=== PATIENT | female | born 1985 | race Hispanic/Latino ===

== ENCOUNTER 2020-11-15 21:40 | Emergency (ER) | payer BC, OTHER, SELFPAY ==
[2020-11-15] MEDS ORDERED: ACETAMINOPHEN 500 MG TAB ONE (22:53)
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
[2020-11-15 23:47] VITALS: TEMP 99.3
[2020-11-15 23:49] VITALS: BP 127/84; O2SAT 98
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
== END 2020-11-15 23:40 | disposition home or self-care (01) ==
LOC: ER 21:40
DX: S00.83XA Contusion of other part of head, initial encounter (principal); W50.0XXA Accidental hit or strike by another person, initial encounter; Z88.2 Allergy status to sulfonamides; E07.9 Disorder of thyroid, unspecified; E11.9 Type 2 diabetes mellitus without complications; I10 Essential (primary) hypertension
CPT/HCPCS: 70450; 72125

== ENCOUNTER 2022-04-11 09:19 | Emergency (ER) | payer BC ==
--- OUTSIDE RECORDS SUMMARY | 2022-04-11 09:22 | XMS REPORT | Continuity of Care Document ---
:1985 Author Organization [facility] t Address [address] [place] [address] [address] [place] [address] Care Team Providers Name Role Phone Pcp, Patient Does Not Have A Primary Care Physician [id number] Nettie Elmore PA-C Attending Clinician RODRIGUEZ KIM Attending Clinician Unavailable Rodriguez Ledbetter Attending Clinician Doctor Unassigned, [place] Attending Clinician Unavailable Payers Payer Name Policy Type Policy Number Effective Date Expiration Date S ourradu Problems Condition Condition Condition Status Onset Resolution Last Treating Co mments Source Name Details Category Date Date Treatment Clinician Date No known No known Disease Unive rs active active ity of problems problems [facility] Allergies, Adverse Reactions, Alerts Allergy Allergy Status Severity Reaction(s) Onset Inactive Treating Comm ents Source Name Type Date Date Clinician Sulfur Propensi Active Rash 2021-0 Univers ty to 4-24 ity of adverse 00:00: [place] reaction 00 [facility] SULFUR DRUG Active Rash 2021-0 Univers INGREDI 4-24 ity of 00:00: [place] 00 [facility] NO KNOWN Drug Active Univers ALLERGIE Class ity of S [facility] Social History Social Habit Start Date Stop Date Quantity Comments Source Exposure to 2021-09-12 2021-09-22 Not sure [facility] SARS-CoV-2 (event) 00:00:00 09:49:00 [facility]ica Branch Sex Assigned [birth year] [facility] 00:00:00 00:00:00 [facility] Smoking Status Start Date Stop Date Source Unknown if ever smoked [facility] Medications Ordered Filled Start Stop Current Ordering Indication Dosage Frequency Signature Comments Components Source Medication Medication Date Date Medication? Clinician (SIG) Name Name methylPREDN 2021-0 Yes [id number] Take by Univers ISolone 4 4-24 mouth ity of mg tablets 00:00: [place]INSTRU [place] 00 CTIONS. Medical follow Branch package directions bromphenira 0 Yes [id number] 5mL Take 5 mL Univers mine-pseudo 4-24 by mouth 3 it y of ephedrine-D 00:00: (three) Paul as M (BROMFED 00 times Medical DM) 2-30-10 daily as Bran ch mg/5 mL needed for syrup Cold symptoms. cetirizine 0 Yes [id number] 10mg Take 1 Univers 10 mg 4-24 tablet by ity of tablet 00:00: mouth [place] 00 daily. Medical Branch ibuprofen Yes [id number] 400mg Take 1 Univers 400 mg 4-24 tablet by ity of tablet 00:00: mouth [place] 00 every 6 Medical (six) Branch hours as needed (30). methylPREDN 2021-0 Yes [id number] Take by Univers ISolone 4 4-24 mouth ity of mg tablets 00:00: SEE-INSTRU [place] 00 CTIONS. Medical follow Branch package directions bromphenira 0 Yes [id number] 5mL Take 5 mL Univers mine-pseudo 4-24 by mouth 3 it y of ephedrine-D 00:00: (three) Paul as M (BROMFED 00 times Medical DM) 2-30-10 daily as Bran ch mg/5 mL needed for syrup Cold symptoms. cetirizine Yes [id number] 10mg Take 1 Univers 10 mg 4-24 tablet by ity of tablet 00:00: mouth [place] 00 daily. Medical Branch ibuprofen 0 Yes [id number] 400mg Take 1 Univers 400 mg 4-24 tablet by ity of tablet 00:00: mouth [place] 00 every 6 Medical (six) Branch hours as needed (30). Vital Signs Vital Name Observation Time Observation Value Comments Source Systolic blood 2021-09-22 14:49:00 148 mm[Hg] Univer sity of pressure [facility] Diastolic blood 2021-09-22 14:49:00 106 mm[Hg] Unive rsity [facility] Heart rate 2021-09-22 14:49:00 89 /min [facility] Body temperature 2021-09-22 14:49:00 37.22 Holly [facility] Respiratory rate 2021-09-22 14:49:00 16 /min [facility] Body height 2021-09-22 14:49:00 144.8 cm [facility] Body weight 2021-09-22 14:49:00 93.123 kg [facility] BMI 2021-09-22 14:49:00 44.43 kg/m2 [facility] Oxygen saturation in 2021-09-22 14:49:00 100 /min [facility] Arterial blood by [facility] Pulse oximetry [place] Procedures Procedure Date / Time Performed Performing Clinician Sourc e POCT MOLECULAR STREP 2021-09-22 14:54:00 Rodriguez Kim [facility] ASSIGNMENT OF BENEFITS 2021-09-22 14:44:09 Doctor Unassigned, No [facility] Encounters Start End Encounter Admission Attending Care Care Encounter Source Date/Time Date/Time Type Type Clinicians Facility Department ID 2021-10-14 2021-10-14 [facility] [id number] Univers 00:00:00 00:00:00 [facility] [id number] it [facility] [id number] Paul as CLAUDY?BLEA [id number] [address] MEDICAL OFFICE [facility] 2021-09-22 2021-09-22 Outpatient R JUDY [facility] [id number] Univers 09:40:00 10:42:48 RODRIGUEZ yuliana [place] [facility] 2021-09-22 2021-09-22 Urgent Nettie Elmore [facility] [id number] Univers 09:40:00 10:00:00 Care Rodriguez Kim [facility] [id number] ityuliana [facility] [id number] Paul as CLAUDY?BLEA [id number] [address] MEDICAL OFFICE [facility] 2021-09-22 2021-09-22 Orders Doctor PAULA [id number] Univers 00:00:00 00:00:00 Only Unassigned, JACOB [id number] ity of [place] [facility] [id number] Paul as [id number] [address] Results Test Description Test Time Test Comments Results Result Comments Source POCT MOLECULAR STREP 2021-09-22 15:04:28 Test Item Value Reference Range Interpretation Comme nts POCT Molecular Strep (test code = 63115-2) Negative Negative Lab Interpretation (test code = 00433-1) Normal [facility]
[2022-04-11 09:35] LABS: Urine Blood 3+ (Negative); Urine Glucose Negative (Negative); Urine Protein Trace (Negative); Urine Specific Gravity >=1.030 (1.005-1.030); Urine pH 5.5 (5.0-7.0)
--- NOTE | 2022-04-11 10:16 | RAD REPORT ---
EXAM DESCRIPTION: CT - Abdomen Pelvis Wo Contrast - 04/11/2022 10:04 am CLINICAL HISTORY: Abdominal pain. Flank pain, kidney stone suspected COMPARISON: CTSTONE PROTOCOL dated 02/20/2015 TECHNIQUE: CT imaging of the abdomen and pelvis was performed without contrast. Solid organ, bowel a nd vascular assessment is limited due to lack of IV and oral contrast. All CT scans are performed using dose optimization technique as appropriate and may include automated exposure control or mA/KV adjustment according to patient size. FINDINGS: The lower lung cuellar are clear.Cholecystectomy clips. The liver, spleen, pancreas, adrenal glands and right kidney are within normal limits for a limited n on-contrast examination.2 mm calculus left UVJ with mild left hydronephrosis. No bowel obstruction, free air, free fluid or abscess. The appendix is normal. The osseous structures are within normal limits. IMPRESSION: 2 mm stone is present left UVJ with mild left hydronephrosis. A limited non-contrast examination was performed as detailed.
[2022-04-11 10:22] LABS: Absolute Lymphocytes (CBC) 1.9 K/uL (0.7-4.9); Lymphocytes % 24.8 % (15.3-44.8); MCV 82.1 fL (80-100); MPV 8.5 fL (7.6-11.3); RBC Red Blood Cell Count 4.75 M/uL (3.86-4.86)
[2022-04-11] MEDS ORDERED: ONDANSETRON 4 MG/2 ML VIAL ONE (10:28)
[2022-04-11] MEDS ORDERED: MORPHINE 2 MG/ML SYR ONE (10:28)
[2022-04-11] MEDS ORDERED: NA CHLORIDE 0.9% 1,000 ML ONE (10:28)
[2022-04-11] MEDS ORDERED: KETOROLAC 30 MG/ML INJ ONE (10:28)
[2022-04-11 10:41] LABS: Albumin 3.5 g/dL (3.4-5.0); Bilirubin Total 0.5 mg/dL (0.2-1.0); Potassium 3.7 mmol/L (3.5-5.1); Protein, Total 8.4 g/dL (6.4-8.2)
--- NOTE | 2022-04-11 10:58 | ER ---
Nurse's Notes [facility] Name: Obdulia Deluca Age: 37 yrs Sex: Female : 1985 Arrival Date: 04/11/2022 Time: 09:21 Bed 17 Private MD: Albaro Amos Diagnosis: Kidney Stone/ Calculus in urethra Presentation: 04/11 09:23 Chief complaint: Patient states: mid back pain that began this morning with ss intermittent N/V x 3 days. Coronavirus screen: Client denies travel out of the [place] in the last 14 days. Ebola Screen: Patient denies exposure to infectious person. Patient denies travel to an Ebola-affected area in the 21 days before illness onset. Initial Sepsis Screen: Does the patient meet any 2 criteria? No. Patient's initial sepsis screen is negative. Does the patient have a suspected source of infection? No. Patient's initial sepsis screen is negative. Risk Assessment: Do you want to hurt yourself or someone else? Patient reports no desire to harm self or others. Onset of symptoms was April 11, 2022. 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 - Social history:: Smoking status: Patient denies any tobacco usage or history of. Screenin:30 Abuse screen: Denies threats or abuse. Denies injuries from another. Nutritional db screening: No deficits noted. Tuberculosis screening: No symptoms or risk factors identified. Fall Risk None identified. No fall in past 12 months (0 pts). No secondary diagnosis (0 pts). IV access (20 points). Ambulatory Aid- None/Bed Rest/Nurse Assist (0 pts). Gait- Normal/Bed Rest/Wheelchair (0 pts) Mental Status- Oriented to own ability (0 pts). Total Garcia Fall Scale indicates No Risk (0-24 pts). Assessment: 10:40 Reassessment: Patient appears in no apparent distress at this time. Patient is alert, db oriented x 3, equal unlabored respirations, skin warm/dry/pink. General: Appears in no apparent distress. comfortable, Behavior is calm, cooperative, appropriate for age, quiet. Pain: Complains of pain in left flank radiating to abdomen. Neuro: Level of Consciousness is awake, alert, obeys commands, Oriented to person, place, time, situation, Appropriate for age. Vital Signs: 09:23 BP 184 / 117; Pulse 90; Resp 17; Temp 97.6(TE); Pulse Ox 100% on R/A; Weight 97.52 kg; ss Height 4 ft. 9 in. (144.78 cm); Pain 10/10; 10:30 BP 172 / 115; Pulse 68; Resp 18; Pulse Ox 100% ; Pain 10/10; db 12:28 BP 133 / 89; Pulse 69; Resp 18; Pulse Ox 100% on R/A; Pain 2/10; db 09:23 Body Mass Index 46.53 (97.52 kg, 144.78 cm) ED Course: 09:21 Patient arrived in ED. as 09:21 Albaro Amos MD is Private Physician. as 09:23 Tyson Lo is [facility]. jl9 09:23 Harish Parikh MD is Attending Physician. jl9 09:25 Triage completed. ss 09:25 Arm band placed on left wrist. ss 09:38 Urine --Ancillary (enter results) Sent. ko1 09:42 Reva Reagan, RN is Primary Nurse. db 10:06 CT Abd/Pelvis - Without Contrast In Process Unspecified. EDMS 10:17 Initial lab(s) drawn, by me, sent to lab. Inserted saline lock: 20 gauge in right em1 antecubital area, using aseptic technique. Blood collected. 10:30 Patient has correct armband on for positive identification. Bed in low position. Call db light in reach. Side rails up X 1. Pulse ox on. NIBP on. 12:26 No provider procedures requiring assistance completed. Patient did not have IV access ss during this emergency room visit. Patient admitted, IV remains in place. 12:27 IV discontinued, intact, bleeding controlled, No redness/swelling at site. db Administered Medications: 10:30 Drug: NS 0.9% 1000 ml Route: IV; Rate: 1 bolus; Site: right antecubital; db 11:52 Follow up: IV Status: Completed infusion; IV Intake: 1000ml db 11:52 Follow up: Response: No adverse reaction db 10:30 Drug: Zofran (Ondansetron) 4 mg Route: IVP; Site: right antecubital; db 11:52 Follow up: Response: No adverse reaction db 10:30 Drug: morphine 2 mg Route: IVP; Infused Over: 4 mins; Site: right antecubital; db 11:52 Follow up: Response: No adverse reaction db 10:30 Drug: Ketorolac 30 mg Route: IVP; Site: right antecubital; db 11:51 Follow up: Response: No adverse reaction db Medication: 12:26 VIS not applicable for this client. db Intake: 11:52 IV: 1000ml; Total: 1000ml. db Outcome: 10:57 Discharge ordered by MD. christianson 12:26 Discharged to home ambulatory. db 12:26 Condition: stable 12:26 Discharge instructions given to patient, Instructed on discharge instructions, follow up and referral plans. Demonstrated understanding of instructions. 12:26 Discharged to home ambulatory. ss 12:26 Condition: good 12:26 Discharge instructions given to patient, Instructed on discharge instructions, follow up and referral plans. medication usage, Demonstrated understanding of instructions, follow-up care, medications, Prescriptions given X 4. 12:27 Patient left the ED. Signatures: Dispatcher [employer] EDMS Carissa Deluca Eric em1 Yasemin Velarde RN RN ss Linares, John jl9 Oliver, Kathy, HYACINTH RN Reva George RN RN db
--- NOTE | 2022-04-11 10:58 | EDPHYS ---
Physician Documentation [facility] Name: Obdulia Deluca Age: 37 yrs Sex: Female : 1985 Arrival Date: 04/11/2022 Time: 09:21 Bed 17 Private MD: Albaro Amos ED Physician Harish Parikh HPI: 04/11 10:54 This 37 yrs old Female presents to ER via Ambulatory with complaints of Back jl9 Pain. 10:54 The patient presents with pain that is acute, with no known mechanism of injury. The jl9 symptoms are located in the low back. Onset: The symptoms/episode began/occurred this morning. The pain does not radiate. Associated signs and symptoms: Pertinent positives: nausea. The problem was sustained from unknown cause. Modifying factors: The patient symptoms are alleviated by nothing, the patient symptoms are aggravated by nothing. Severity of symptoms: in the emergency department the symptoms a " 6" out of "10". 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 - Social history:: Smoking status: Patient denies any tobacco usage or history of. ROS: 10:55 Constitutional: Negative for fever, chills, and weight loss, Eyes: Negative for injury, jl9 pain, redness, and discharge, ENT: Negative for injury, pain, and discharge, Neck: Negative for injury, pain, and swelling, Cardiovascular: Negative for chest pain, palpitations, and edema, Respiratory: Negative for shortness of breath, cough, wheezing, and pleuritic chest pain, Abdomen/GI: Negative for abdominal pain, nausea, vomiting, diarrhea, and constipation. 10:55 : Negative for injury, bleeding, discharge, and swelling, MS/Extremity: Negative for injury and deformity, Skin: Negative for injury, rash, and discoloration, Neuro: Negative for headache, weakness, numbness, tingling, and seizure, Psych: Negative for depression, anxiety, suicide ideation, homicidal ideation, and hallucinations, Allergy/Immunology: Negative for hives, rash, and allergies, Endocrine: Negative for neck swelling, polydipsia, polyuria, polyphagia, and marked weight changes, Hematologic/Lymphatic: Negative for swollen nodes, abnormal bleeding, and unusual bruising. 10:55 Back: Positive for flank pain, bilaterally. Exam: 10:55 Constitutional: This is a well developed, well nourished patient who is awake, alert, jl9 and in no acute distress. Head/Face: Normocephalic, atraumatic. Eyes: Pupils equal round and reactive to light, extra-ocular motions intact. Lids and lashes normal. Conjunctiva and sclera are non-icteric and not injected. Cornea within normal limits. Periorbital areas with no swelling, redness, or edema. ENT: Mucous membranes moist. Neck: Trachea midline, no thyromegaly or masses palpated, and no cervical lymphadenopathy. Supple, full range of motion without nuchal rigidity, or vertebral point tenderness. No Meningismus. Chest/axilla: Normal chest wall appearance and motion. Nontender with no deformity. No lesions are appreciated. Cardiovascular: Regular rate and rhythm with a normal S1 and S2. No gallops, murmurs, or rubs. Normal PMI, no JVD. No pulse deficits. Respiratory: Lungs have equal breath sounds bilaterally, clear to auscultation and percussion. No rales, rhonchi or wheezes noted. No increased work of breathing, no retractions or nasal flaring. Abdomen/GI: Soft, non-tender, with normal bowel sounds. No distension or tympany. No guarding or rebound. No evidence of tenderness throughout. 10:55 Skin: Warm, dry with normal turgor. Normal color with no rashes, no lesions, and no evidence of cellulitis. MS/ Extremity: Pulses equal, no cyanosis. Neurovascular intact. Full, normal range of motion. Neuro: Awake and alert, GCS 15, oriented to person, place, time, and situation. Cranial nerves II-XII grossly intact. Motor strength 5/5 in all extremities. Sensory grossly intact. Cerebellar exam normal. Normal gait. Psych: Awake, alert, with orientation to person, place and time. Behavior, mood, and affect are within normal limits. 10:55 Back: pain, that is moderate, ROM is normal, normal spinal alignment noted, CVA tenderness, is absent. Vital Signs: 09:23 BP 184 / 117; Pulse 90; Resp 17; Temp 97.6(TE); Pulse Ox 100% on R/A; Weight 97.52 kg; ss Height 4 ft. 9 in. (144.78 cm); Pain 10/10; 10:30 BP 172 / 115; Pulse 68; Resp 18; Pulse Ox 100% ; Pain 10/10; db 12:28 BP 133 / 89; Pulse 69; Resp 18; Pulse Ox 100% on R/A; Pain 2/10; db 09:23 Body Mass Index 46.53 (97.52 kg, 144.78 cm) ss MDM: 09:24 Patient medically screened. jl9 10:56 Differential diagnosis: Cholelithiasis chronic back pain, Pyelonephritis. Data jl9 reviewed: vital signs, nurses notes, lab test result(s), radiologic studies. 10:56 Counseling: I had a detailed discussion with the patient and/or guardian regarding: the jl9 historical points, exam findings, and any diagnostic results supporting the discharge/admit diagnosis, lab results, radiology results, the need for outpatient follow up, to return to the emergency department if symptoms worsen or persist or if there are any questions or concerns that arise at home. Response to treatment: the patient's symptoms have resolved after treatment. 04/11 09:35 Order name: Urine Dipstick-Ancillary; Complete Time: 09:46 EDND 04/11 09:37 Order name: Urine --Ancillary (enter results); Complete Time: 09:46 eb 04/11 09:52 Order name: CBC with Diff; Complete Time: 10:50 [facility] 04/11 09:52 Order name: CMP; Complete Time: 10:50 [facility] 04/11 09:52 Order name: Lipase; Complete Time: 10:50 [facility] 04/11 09:52 Order name: CT Abd/Pelvis - Without Contrast; Complete Time: 10:17 [facility] 04/11 09:24 Order name: Urine Dipstick-Ancillary (obtain specimen); Complete Time: 09:38 [facility] 04/11 09:24 Order name: Urine Test (obtain specimen); Complete Time: 09:38 [facility] 04/11 09:52 Order name: IV Saline Lock; Complete Time: 10:17 9 04/11 09:52 Order name: Labs collected and sent; Complete Time: 10:17 Administered Medications: 10:30 Drug: NS 0.9% 1000 ml Route: IV; Rate: 1 bolus; Site: right antecubital; db 11:52 Follow up: IV Status: Completed infusion; IV Intake: 1000ml db 11:52 Follow up: Response: No adverse reaction db 10:30 Drug: Zofran (Ondansetron) 4 mg Route: IVP; Site: right antecubital; db 11:52 Follow up: Response: No adverse reaction db 10:30 Drug: morphine 2 mg Route: IVP; Infused Over: 4 mins; Site: right antecubital; db 11:52 Follow up: Response: No adverse reaction db 10:30 Drug: Ketorolac 30 mg Route: IVP; Site: right antecubital; db 11:51 Follow up: Response: No adverse reaction db Disposition Summary: 04/11/22 10:57 Discharge Ordered Location: Home jl9 Condition: Stable jl9 Diagnosis - Kidney Stone/ Calculus in urethra jl9 Followup: jl9 - With: Private Physician - When: 1 - 2 days - Reason: Recheck today's complaints, Continuance of care, Re-evaluation by your physician Discharge Instructions: - Discharge Summary Sheet jl9 Forms: - Medication Reconciliation Form jl9 - Thank You Letter jl9 - Antibiotic Education jl9 - Prescription Opioid Use jl9 Prescriptions: - Flomax 0.4 mg Oral capsule - take 1 capsule by ORAL route once daily 1/2 hour following the same meal each 9 day; 14 capsule; Refills: 0, Product Selection Permitted - ketorolac 10 mg Oral tablet - take 1 tablet by ORAL route every 6 hours not to exceed 40 mg in 24hrs; 20 jl9 tablet; Refills: 0, Product Selection Permitted - ondansetron 8 mg Oral tablet,disintegrating - take 1 tablet by ORAL route every 8 hours; 20 tablet; Refills: 0, Product jl9 Selection Permitted - Tylenol-Codeine #3 300 mg-30 mg Oral - take 1 tablet by ORAL route every 8 hours; 12 tablet; Refills: 0, Product jl9 Selection Permitted Signatures: Dispatcher [employer] Yasemin Hood RN RN ss Linares, John jl9 Reva Reagan, RN RN db
[2022-04-11 13:07] VITALS: TEMP 97.6; O2SAT 100
[2022-04-11 13:09] VITALS: BP 172/115
== END 2022-04-11 12:27 | disposition home or self-care (01) ==
LOC: ER 09:19
DX: N20.0 Calculus of kidney (principal); N21.1 Calculus in urethra; I10 Essential (primary) hypertension; E11.9 Type 2 diabetes mellitus without complications; Z88.2 Allergy status to sulfonamides
CPT/HCPCS: 96361; 85025; 36415; 81025; 81003; 83690; 80053; 74176; 96375; 96374; 99284; J2270; J7030; J2405

== ENCOUNTER 2023-03-28 19:42 | Emergency (ER) | payer BC ==
--- OUTSIDE RECORDS SUMMARY | 2023-03-28 19:46 | XMS REPORT | Continuity of Care Document ---
:1985 Author Organization [facility] t Address [address] [place] [id number] Care Team Providers Name Role Phone Pcp, Patient Does Not Have A Primary Care Physician [id number] Kylie Castro MD Attending Clinician Unknown, Attending Attending Clinician Unavailable KYLIE CASTRO Attending Clinician Unavailable Doctor Unassigned, [place] Attending Clinician Unavailable Nettie Elmore PA-C Attending Clinician RODRIGUEZ KIM Attending Clinician Unavailable Rodriguez Ledbetter Attending Clinician Payers Payer Name Policy Type Policy Number Effective Date Expiration Date S ource Problems Condition Condition Condition Status Onset Resolution Last Treating Co mments Source Name Details Category Date Date Treatment Clinician Date No known No known Disease Unive rs active active ity of problems problems [facility] Allergies, Adverse Reactions, Alerts Allergy Allergy Status Severity Reaction(s) Onset Inactive Treating Comm ents Source Name Type Date Date Clinician Sulfur Propensi Active Rash 2021-0 Univers ty to 4-24 ity of adverse 00:00: [place] reaction 00 [facility] SULFUR DRUG Active Rash 0 Univers INGREDI 4-24 ity of 00:00: [place] 00 [facility] NO KNOWN Drug Active Univers ALLERGIE Class ity [facility] Social History Social Habit Start Date Stop Date Quantity Comments Source Gender identity Universit y [facility] [place] [facility] Sexual orientation [facility] History of Social 2023-01-11 2023-01-11 Univers ity of [place] function 00:00:00 00:00:00 Medical [place] Exposure to 2021-09-12 2021-09-22 Not sure [facility] SARS-CoV-2 (event) 00:00:00 09:49:00 Medica l Branch Sex [birth year] Uni [facility] 00:00:00 00:00:00 Medical Branch Smoking Status Start Date Stop Date Source Tobacco [facility] consumption [facility] Branch Medications Ordered Filled Start Stop Current Ordering Indication Dosage Frequency Signature Comments Components Source Medication Medication Date Date Medication? Clinician (SIG) Name Name benzonatate 0 Yes [id number] 200mg Take 2 Univers 100 mg 8-13 capsules ity of capsule 00:00: by mouth [place] 00 every 8 Medical (eight) Branch hours as needed for Cough. promethazin 2022-0 Yes [id number] 5mL Take 5 mL Univers e-dextromet 8-13 by mouth 4 it y of [place] 00:00: (four) [place] 6.25-15 00 times Medical mg/5 mL daily as Branch syrup needed for Cough. guaiFENesin 2022-0 Yes [id number] 400mg Take 1 Univers 400 mg 8-13 tablet by ity of tablet 00:00: mouth [place] 00 every 4 Medical (four) Branch hours as needed for Cough. albuterol 2022-0 Yes [id number] 2{puff} Inhale 2 Univers 90 8-13 Puffs ity of mcg/actuati 00:00: every 6 [place] as on inhaler 00 (six) Medical hours as Branch needed for Shortness of Breath or Wheezing. benzonatate 2022-0 Yes [id number] 200mg Take 2 Univers 100 mg 8-13 capsules ity of capsule 00:00: by mouth [place] 00 every 8 Medical (eight) Branch hours as needed for Cough. promethazin 2022-0 Yes [id number] 5mL Take 5 mL Univers e-dextromet 8-13 by mouth 4 it y of [place] 00:00: (four) [place] 6.25-15 00 times Medical mg/5 mL daily as Branch syrup needed for Cough. guaiFENesin 2022-0 Yes [id number] 400mg Take 1 Univers 400 mg 8-13 tablet by ity of tablet 00:00: mouth [place] 00 every 4 Medical (four) Branch hours as needed for Cough. albuterol 2022-0 Yes [id number] 2{puff} Inhale 2 Univers 90 8-13 Puffs ity of mcg/actuati 00:00: every 6 Paul as on inhaler 00 (six) Medical hours as Branch needed for Shortness of Breath or Wheezing. benzonatate 2022-0 Yes [id number] 200mg Take 2 Univers 100 mg 8-13 capsules ity of capsule 00:00: by mouth [place] 00 every 8 Medical (eight) Branch hours as needed for Cough. promethazin 2022-0 Yes [id number] 5mL Take 5 mL Univers e-dextromet 8-13 by mouth 4 it y of [place]phan 00:00: (four) [place] 6.25-15 00 times Medical mg/5 mL daily as Branch syrup needed for Cough. guaiFENesin 2022-0 Yes [id number] 400mg Take 1 Univers 400 mg 8-13 tablet by ity of tablet 00:00: mouth [place] 00 every 4 Medical (four) Branch hours as needed for Cough. albuterol 2022-0 Yes [id number] 2{puff} Inhale 2 Univers 90 8-13 Puffs ity of mcg/actuati 00:00: every 6 [place] as on inhaler 00 (six) Medical hours as Branch needed for Shortness of Breath or Wheezing. levothyroxi 2022-0 Yes TAKE 1 Univ ers ne 150 mcg 5-19 TABLET BY ity of tablet 00:00: MOUTH [place] 00 EVERY Medical MORNING ON Branch AN EMPTY STOMACH, WAIT 30 MINUTES BEFORE EATING OR DRINKING losartan 50 3-0 Yes 50mg Take 1 Univ ers mg tablet 5-19 tablet by ity o f 00:00: mouth in [place] 00 the Medical morning. Branch levothyroxi 2022-0 Yes TAKE 1 Univ ers ne 150 mcg 5-19 TABLET BY ity of tablet 00:00: MOUTH [place] 00 EVERY Medical MORNING ON Branch AN EMPTY STOMACH, WAIT 30 MINUTES BEFORE EATING OR DRINKING losartan 50 3-0 Yes 50mg Take 1 Univ ers mg tablet 5-19 tablet by ity o f 00:00: mouth in [place] 00 the Medical morning. Branch levothyroxi 2022-0 Yes TAKE 1 Univ ers ne 150 mcg 5-19 TABLET BY ity of tablet 00:00: MOUTH [place] 00 EVERY Medical MORNING ON Branch AN EMPTY STOMACH, WAIT 30 MINUTES BEFORE EATING OR DRINKING losartan 50 3-0 Yes 50mg Take 1 Univ ers mg tablet 5-19 tablet by ity o f 00:00: mouth in [place] 00 the Medical morning. Branch glyBURIDE 5 2022-0 Yes 5mg Take 1 Univ ers mg tablet 5-18 tablet by ity o f 00:00: mouth [place] 00 every Medical morning. Branch glyBURIDE 5 2022-0 Yes 5mg Take 1 Univ ers mg tablet 5-18 tablet by ity o f 00:00: mouth [place] 00 every Medical morning. Branch glyBURIDE 5 2022-0 Yes 5mg Take 1 Univ ers mg tablet 5-18 tablet by ity o f 00:00: mouth [place] 00 every Medical morning. Branch methylPREDN 2021-0 Yes [id number] Take by Univers ISolone 4 4-24 mouth ity of mg tablets 00:00: [place]-INSTRU [place] 00 CTIONS. Medical follow Branch package directions bromphenira 0 Yes [id number] 5mL Take 5 mL Univers mine-pseudo 4-24 by mouth 3 it y of ephedrine-D 00:00: (three) [place] M (BROMFED 00 times Medical DM) 2-30-10 daily as Bran ch mg/5 mL needed for syrup Cold symptoms. cetirizine 2021-0 Yes [id number] 10mg Take 1 Univers 10 mg 4-24 tablet by ity of tablet 00:00: mouth [place] 00 daily. Medical Branch ibuprofen 2021-0 Yes [id number] 400mg Take 1 Univers 400 mg 4-24 tablet by ity of tablet 00:00: mouth [place] 00 every 6 Medical (six) Branch hours as needed (30). methylPREDN 2021-0 Yes [id number] Take by Univers ISolone 4 4-24 mouth ity of mg tablets 00:00: SEE-INSTRU [place] 00 CTIONS. Medical follow Branch package directions bromphenira 2021-0 Yes [id number] 5mL Take 5 mL Univers mine-pseudo 4-24 by mouth 3 it y of ephedrine-D 00:00: (three) [place] M (BROMFED 00 times Medical DM) 2-30-10 daily as Bran ch mg/5 mL needed for syrup Cold symptoms. cetirizine 2021-0 Yes [id number] 10mg Take 1 Univers 10 mg 4-24 tablet by ity of tablet 00:00: mouth [place] 00 daily. Medical Branch ibuprofen 2021-0 Yes [id number] 400mg Take 1 Univers 400 mg 4-24 tablet by ity of tablet 00:00: mouth [place] 00 every 6 Medical (six) Branch hours as needed (30). methylPREDN 2022-0 Yes [id number] Take by Univers ISolone 4 4-24 mouth ity of mg tablets 00:00: SEE-INSTRU [place] 00 CTIONS. Medical follow Branch package directions bromphenira 2021-0 Yes [id number] 5mL Take 5 mL Univers mine-pseudo 4-24 by mouth 3 it y of ephedrine-D 00:00: (three) [place] M (BROMFED 00 times Medical DM) 2-30-10 daily as Bran ch mg/5 mL needed for syrup Cold symptoms. cetirizine 2021-0 Yes [id number] 10mg Take 1 Univers 10 mg 4-24 tablet by ity of tablet 00:00: mouth [place] 00 daily. Medical Branch ibuprofen 2021-0 Yes [id number] 400mg Take 1 Univers 400 mg 4-24 tablet by ity of tablet 00:00: mouth [place] 00 every 6 Medical (six) Branch hours as needed (30). methylPREDN 2021-0 Yes [id number] Take by Univers ISolone 4 4-24 mouth ity of mg tablets 00:00: SEE-INSTRU [place] 00 CTIONS. Medical follow Branch package directions bromphenira 2021-0 Yes [id number] 5mL Take 5 mL Univers mine-pseudo 4-24 by mouth 3 it y of ephedrine-D 00:00: (three) [place] M (BROMFED 00 times Medical DM) 2-30-10 daily as Bran ch mg/5 mL needed for syrup Cold symptoms. cetirizine 2021-0 Yes [id number] 10mg Take 1 Univers 10 mg 4-24 tablet by ity of tablet 00:00: mouth [place] 00 daily. Medical Branch ibuprofen 2-0 Yes [id number] 400mg Take 1 Univers 400 mg 4-24 tablet by ity of tablet 00:00: mouth [place] 00 every 6 Medical (six) Branch hours as needed (30). methylPREDN 2022-0 3- No [id number] Take by Univers ISolone 4 4-24 08-13 mouth ity of mg tablets 00:00: 00:00 SEE-INSTRU [place] 00 :00 CTIONS. Medical follow Branch package directions bromphenira 2022-0 3- No [id number] 5mL Take 5 mL Univers mine-pseudo 09-22 by mouth 3 i ty of ephedrine-D 00:00: 00:00 (three) Fitz sosa M (BROMFED 00 :00 times Medical DM) 2-30-10 daily as Bran ch mg/5 mL needed for syrup Cold symptoms. cetirizine 2022- No [id number] 10mg Take 1 Univers 10 mg 09-22 tablet by ity of tablet 00:00: 00:00 mouth [place] 00 :00 daily. Medical Branch ibuprofen 2022- No [id number] 400mg Take 1 Univers 400 mg 09-22 tablet by ity of tablet 00:00: 00:00 mouth [place] 00 :00 every 6 Medical (six) Branch hours as needed (30). Vital Signs Vital Name Observation Time Observation Value Comments Source Systolic blood 2023-01-11 14:13:00 131 mm[Hg] Univer [facility] Diastolic blood 2023-01-11 14:13:00 84 mm[Hg] Unive rs[facility] Heart rate 2023-01-11 14:12:00 97 /min [facility] Body temperature 2023-01-11 14:12:00 37.22 Holly [facility] Respiratory rate 2023-01-11 14:12:00 17 /min [facility] Body height 2023-01-11 14:12:00 144.8 cm [facility] Body weight 2023-01-11 14:12:00 102.876 kg [facility] BMI 2023-01-11 14:12:00 49.08 kg/m2 [facility] Oxygen saturation in 2023-01-11 14:12:00 99 /min [facility] Arterial blood by [facility] Pulse oximetry Branch Systolic blood 2021-09-22 14:49:00 148 mm[Hg] Univer sity of [facility] Diastolic blood 2021-09-22 14:49:00 106 mm[Hg] Unive rsity [facility] Heart rate 2021-09-22 14:49:00 89 /min [facility] Body temperature 2021-09-22 14:49:00 37.22 [place] [facility] Respiratory rate 2021-09-22 14:49:00 16 /min [facility] Body height 2021-09-22 14:49:00 144.8 cm [facility] Body weight 2021-09-22 14:49:00 93.123 kg [facility] BMI 2021-09-22 14:49:00 44.43 kg/m2 [facility] Oxygen saturation in 2021-09-22 14:49:00 100 /min [facility] Arterial blood by [facility] Pulse oximetry [place] Procedures Procedure Date / Time Performed Performing Clinician Soureric e POCT MOLECULAR STREP 2023-01-11 14:17:00 Unknown, Attending [facility] ASSIGNMENT OF BENEFITS 2023-01-11 14:08:37 Doctor Unassigned, No [facility] POCT MOLECULAR STREP 2021-09-22 14:54:00 Rodriguez Kim [facility] ASSIGNMENT OF BENEFITS 2021-09-22 14:44:09 Doctor Unassigned, No [facility] Encounters Start End Encounter Admission Attending Care Care Encounter Source Date/Time Date/Time Type Type Clinicians Facility Department ID 2023-02-02 2023-02-02 Refjordan Castro [facility] [id number] Univers 00:00:00 00:00:00 [facility] [id number] it y of [place] [id number] Paul as CLAUDY?BLEA [id number] [address] MEDICAL OFFICE [facility] 2023-01-11 2023-01-11 Urgent Kylie Castro [facility] [id number] Univers 09:40:00 09:40:00 Care Unknown, Attending [facility] [id number] ity of [place] [id number] Paul as CLAUDY?BLEA [id number] [address] MEDICAL OFFICE [facility] 2023-01-11 2023-01-11 Outpatient R [facility] [id number] Univers 09:40:00 09:39:04 KYLIE [facility] 2023-01-11 2023-01-11 Orders Doctor NISA [id number] Univers 00:00:00 00:00:00 Only Unassigned, JACOB [id number] ity of [place] [facility] [id number] Paul as [id number] [address] 2023-01-11 2023-01-11 [facility] [id number] Univers 00:00:00 00:00:00 (Out) Kylie HEALTH [id number] it y of [facility] [id number] Paul as CLAUDY?BLEA [id number] [address] MEDICAL OFFICE [facility] 2021-10-14 2021-10-14 [facility]ill [facility] [id number] Univers 00:00:00 00:00:00 Nettie HEALTH [id number] it y of [place] [id number] Paul as CLAUDY?BLEA [id number] [address] MEDICAL OFFICE [facility] 2021-09-22 2021-09-22 Outpatient [facility] [id number] Univers 09:40:00 10:42:48 RODRIGUEZ ity [facility] [place] [facility] 2021-09-22 2021-09-22 Urgent Josefinaromario [facility] [id number] Univers 09:40:00 10:00:00 [facility] [id number] ity of [place] [id number] Paul as CLAUDY?BLEA [id number] [address] MEDICAL OFFICE [facility] 2021-09-22 2021-09-22 Orders Doctor NISA [id number] Univers 00:00:00 00:00:00 Only Unassigned, JACOB [id number] ity of [place] [facility] [id number] Paul as [id number] [address] Results Test Description Test Time Test Comments Results Result Comments Source POCT MOLECULAR STREP 2023-01-11 14:24:26 Test Item Value Reference Range Interpretation Comme nts POCT Molecular Strep (test code = 76139-9) Negative Negative Lab Interpretation (test code = 79114-5) [facility] [id number] 15:04:28 Test Item Value Reference Range Interpretation Comments POCT Molecular Strep (test code = Negative Negative 47310-2) Lab Interpretation (test code = Normal 13913-3) [facility]
[2023-03-28 21:17] LABS: Absolute Lymphocytes (CBC) 2.9 K/uL (0.7-4.9); Hematocrit 34.9 % (36.0-45.0); Lymphocytes % 35.1 % (15.3-44.8); MCV 81.6 fL (80-100); MPV 8.8 fL (7.6-11.3); Platelets 281 thou/uL (152-406); RBC Red Blood Cell Count 4.28 M/uL (3.86-4.86)
[2023-03-28 21:19] LABS: Specific Gravity 1.019 (1.005-1.030)
[2023-03-28 21:21] LABS: Specific Gravity 1.019 (1.005-1.030); Urine Bacteria None Seen /HPF (<20); Urine Bilirubin NEGATIVE (Negative); Urine Blood 3+ (Negative); Urine Clarity Clear (Clear); Urine Color Light-Yellow (Yellow); Urine Glucose NEGATIVE (Negative); Urine Protein NEGATIVE (Negative); Urine RBC <5 /HPF (None Seen); Urine Urobilinogen Normal (Normal)
[2023-03-28] MEDS ORDERED: MORPHINE 4 MG/ML SYR ONE (21:28)
[2023-03-28] MEDS ORDERED: NA CHLORIDE 0.9% 1,000 ML ONE (21:28)
[2023-03-28] MEDS ORDERED: ONDANSETRON 4 MG/2 ML VIAL ONE (21:28)
[2023-03-28 21:34] LABS: Albumin 3.1 g/dL (3.4-5.0); Bilirubin Total 0.2 mg/dL (0.2-1.0); Potassium 3.6 mEq/L (3.5-5.1); Protein, Total 7.8 g/dL (6.4-8.2)
--- NOTE | 2023-03-28 22:12 | RAD REPORT ---
EXAM DESCRIPTION: [facility]Stone Protocol - 03/28/2023 10:03 pm CLINICAL HISTORY: left flank pain COMPARISON: Abdomen Pelvis Wo Contrast dated 04/11/2022; CTSTONE PROTOCOL dated 02/20/2015 TECHNIQUE: CT of the abdomen and pelvis was performed. All CT scans are performed using dose optimization technique as appropriate and may include automated exposure control or mA/KV adjustment according to patient size. FINDINGS: Lower chest: No acute abnormality. Liver: No acute abnormality or suspicious lesions. Biliary: No biliary ductal dilatation. Cholecystectomy Stomach: No significant focal abnormality. Duodenum: No significant focal abnormality. Pancreas: No significant abnormality. Spleen: No significant abnormality. Adrenal: No suspicious lesions. Kidney/ureter: No hydronephrosis. No renal calculi. Retroperitoneum: No retroperitoneal adenopathy. Vascular: No aneurysm. Bowel: No significant focal abnormality. Normal appendix. Peritoneum: No ascites or free air. Bladder: Grossly unremarkable. Reproductive: No adnexal masses. Bones: No acute fracture. Other: n/a IMPRESSION: No acute intra-abdominal or pelvic finding. No urinary tract calculi. Normal appendix.
[2023-03-28] MEDS ORDERED: KETOROLAC 30 MG/ML INJ ONE (22:43)
[2023-03-28] MEDS ORDERED: ASPIRIN 81 MG CHEWABLE TABLET ONE (22:44)
--- NOTE | 2023-03-28 23:54 | ER ---
Nurse's Notes [facility] Name: Obdulia Deluca Age: 38 yrs Sex: Female : 1985 Arrival Date: 03/28/2023 Time: 19:42 Bed 7 Private MD: Diagnosis: Hematuria, unspecified;Abdominal pain, unspecified;Chest pain, unspecified Presentation: 03/28 20:11 Chief complaint: Patient states: left side pain since yesterday. feels similar to iw kidney stone, denies urinary s/s. Coronavirus screen: At this time, the client does not indicate any symptoms associated with coronavirus-19. Ebola Screen: Patient negative for fever greater than or equal to 101.5 degrees Fahrenheit, and additional compatible Ebola Virus Disease symptoms Patient denies exposure to infectious person. Patient denies travel to an Ebola-affected area in the 21 days before illness onset. No symptoms or risks identified at this time. Initial Sepsis Screen: Does the patient meet any 2 criteria? No. Patient's initial sepsis screen is negative. Does the patient have a suspected source of infection? No. Patient's initial sepsis screen is negative. Risk Assessment: Do you want to hurt yourself or someone else? Patient reports no desire to harm self or others. Onset of symptoms was March 27, 2102. 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 - Social history:: Smoking status: Patient denies any tobacco usage or history of. Screenin:20 [facility] ED Fall Risk Assessment (Adult) History of falling in the last 3 months, km8 including since admission No falls in past 3 months (0 pts) Confusion or Disorientation No (0 pts) Intoxicated or Sedated No (0 pts) Impaired Gait No (0 pts) Mobility Assist Device Used No (0 pt) Altered Elimination No (0 pt) Score/Fall Risk Level 0 - 2 = Low Risk Oriented to surroundings, Maintained a safe environment, Educated pt \T\ family on fall prevention, incl call for assistance when getting out of bed, Assessed \T\ reinforced patient's understanding of fall precautions. Abuse screen: Denies threats or abuse. Denies injuries from another. Nutritional screening: No deficits noted. Tuberculosis screening: No symptoms or risk factors identified. Assessment: 21:20 General: Appears in no apparent distress. uncomfortable, Behavior is calm, cooperative, km8 appropriate for age. 21:20 Pain: Complains of pain in left low back Pain currently is 8 out of 10 on a pain scale. km8 Neuro: [place] Agitation-Sedation Scale (RASS): 0 - Alert and Calm Level of Consciousness is awake, alert, obeys commands, Oriented to person, place, time, situation. Cardiovascular: Denies chest pain, shortness of breath, Capillary refill < 3 seconds Patient's skin is warm and dry. Respiratory: Airway is patent Respiratory effort is even, unlabored, Respiratory pattern is regular, symmetrical. GI: Abdomen is obese, Bowel sounds present X 4 quads. Abd is soft and non tender X 4 quads. : Reports left flank pain. EENT: No signs and/or symptoms were reported regarding the EENT system. Derm: No signs and/or symptoms reported regarding the dermatologic system. Skin is intact, is healthy with good turgor, Skin is dry, Skin is pink, warm \T\ dry. normal, Skin temperature is warm. Musculoskeletal: No deficits noted. No signs and/or symptoms reported regarding the musculoskeletal system. Range of motion: intact in all extremities. 22:53 Reassessment: Patient appears in no apparent distress at this time. Patient and/or km8 family updated on plan of care and expected duration. Pain level reassessed. Patient is alert, oriented x 3, equal unlabored respirations, skin warm/dry/pink. Patient states symptoms have improved. 03/29 00:04 Reassessment: Patient appears in no apparent distress at this time. No changes from km8 previously documented assessment. Patient and/or family updated on plan of care and expected duration. Pain level reassessed. Patient is alert, oriented x 3, equal unlabored respirations, skin warm/dry/pink. Vital Signs: 03/28 20:11 BP 177 / 107; Pulse 79; Resp 16; Temp 98; Pulse Ox 100% on R/A; Weight 102.51 kg; iw Height 4 ft. 10 in. ; Pain 7/10; 21:05 BP 158 / 112; Pulse 70; Resp 20; Pulse Ox 100% on R/A; Pain 8/10; km8 21:30 BP 163 / 100; Pulse 72; Resp 20; Pulse Ox 100% on R/A; km8 22:30 BP 167 / 97; Pulse 67; Resp 20; Pulse Ox 100% on R/A; km8 23:00 BP 142 / 88; Pulse 68; Resp 16 S; Pulse Ox 97% on R/A; km8 23:30 BP 129 / 76; Pulse 66; Resp 16 S; Pulse Ox 98% on R/A; km8 20:11 Body Mass Index 47.23 (102.51 kg, 147.32 cm) iw 20:11 Pain Scale: Adult iw 21:05 Pain Scale: Adult km8 ED Course: 19:46 Patient arrived in ED. gm2 19:46 Odell Mejía PA is PHCP. cp 19:46 Hema Licona MD is Attending Physician. cp 20:12 Triage completed. iw 20:13 Arm band placed on. iw 21:01 CBC with Diff Sent. bc6 21:01 CMP Sent. bc6 21:01 Lipase Sent. bc6 21:01 Test, Urine Sent. bc6 21:01 Urinalysis w/ reflexes Sent. bc6 21:01 Inserted saline lock: 20 gauge in left antecubital area, using aseptic technique. Blood bc6 collected. 21:06 Brandy Kim, RN is Primary Nurse. km8 21:20 Patient has correct armband on for positive identification. Bed in low position. Call km8 light in reach. Side rails up X 1. Client placed on continuous cardiac and pulse oximetry monitoring. NIBP monitoring applied. Door closed. Noise minimized. Warm blanket given. 21:20 Patient maintains SpO2 saturation greater than 95% on room air. km8 22:03 CT Stone Protocol In Process Unspecified. EDMS 22:34 Troponin High Sensitivity Sent. km8 03/29 00:05 Provided Education on: d/c teaching. km8 00:05 No provider procedures requiring assistance completed. IV discontinued, intact, km8 bleeding controlled, No redness/swelling at site. Pressure dressing applied. Administered Medications: 03/28 21:21 Drug: NS 0.9% IV 1000 ml IV at 1 bolus Per protocol; 1000 mL bolus Route: IV; Rate: 1 km8 bolus; Site: left antecubital; 23:30 Follow up: IV Status: Completed infusion; IV Intake: 1000ml 21:21 Drug: Ondansetron IVP 4 mg IVP once; over 2 minutes Route: IVP; Site: left antecubital; km8 22:18 Follow up: Response: No adverse reaction 8 21:21 Drug: morphine IVP or IV 4 mg IVP once over 4 mins Route: IVP; Infused Over: 4 mins; km8 Site: left antecubital; 22:18 Follow up: Response: No change in condition km8 22:34 Drug: Aspirin PO Chewable Tablet 324 mg PO once; 81 mg tablets x 4 Route: PO; km8 22:52 Follow up: Response: No adverse reaction; Pain is decreased km8 22:35 Drug: Ketorolac IVP 15 mg IVP once Route: IVP; Site: right antecubital; km8 22:52 Follow up: Response: No adverse reaction; Pain is decreased km8 Medication: 03/29 00:05 VIS not applicable for this client. km8 Intake: 03/28 23:30 IV: 1000ml; Total: 1000ml. km8 Outcome: 23:54 Discharge ordered by MD. anaya 03/29 00:09 Discharged to home ambulatory, with significant other, km8 Condition: good Discharge instructions given to patient, significant other, Instructed on discharge instructions, follow up and referral plans. medication usage, Demonstrated understanding of instructions, follow-up care, medications, Prescriptions given X 2, 00:10 Patient left the ED. km8 Signatures: Dispatcher [employer] EDMS Millicent Maria RN RN iw Odell Mejía PA PA cp Corinna Velazquez 6 Radha Martinez gm2 Brandy Kim RN RN km8 Corrections: (The following items were deleted from the chart) 03/28 20:22 20:11 BP 193 / 99; Pulse 79bpm; Resp 16bpm; Pulse Ox 100% RA; Temp 98F; 102.51 kg; iw Height 4 ft. 10 in.; BMI: 47.2; Pain 7/10, Adult; iw
--- NOTE | 2023-03-28 23:54 | EDPHYS ---
Physician Documentation [facility] Name: Obdulia Deluca Age: 38 yrs Sex: Female : 1985 Arrival Date: 03/28/2023 Time: 19:42 Bed 7 Private MD: ED Physician Hema Licona HPI: 03/28 20:30 This 38 yrs old Female presents to ER via Ambulatory with complaints of cp Abdominal Pain. 20:30 The patient complains of pain in the left flank. The pain does not radiate. cp 20:30 Onset: The symptoms/episode began/occurred yesterday. cp 20:30 Associated signs and symptoms: Pertinent negatives: diarrhea, fever, pain radiating to cp the lower extremities, vomiting. The patient has experienced a previous episode, when diagnosed with kidney stone. 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 - Social history:: Smoking status: Patient denies any tobacco usage or history of. ROS: 20:35 Back: Positive for flank pain, on the left, Negative for injury or acute deformity, cp 20:35 Constitutional: Negative for body aches, chills, fever, poor PO intake, cp 20:35 Respiratory: Negative for cough, shortness of breath, wheezing, cp 20:35 Abdomen/GI: Positive for abdominal pain, of the posterior aspect of left lateral abdomen and anterior aspect of left lateral abdomen, Negative for vomiting, diarrhea, constipation, 20:35 Eyes: Negative for injury, pain, redness, and discharge, cp 20:35 ENT: Negative for drainage from ear(s), ear pain, sore throat, difficulty swallowing, difficulty handling secretions, 20:35 Cardiovascular: Negative for chest pain, edema, palpitations, 20:35 : Negative for burning with urination, 20:35 Skin: Negative for rash, 20:35 All other systems are negative, Exam: 20:40 Constitutional: The patient appears in no acute distress, alert, awake, non-toxic, well cp developed, well nourished, obese, uncomfortable, 20:40 Head/Face: Normocephalic, atraumatic. cp 20:40 Eyes: Periorbital structures: appear normal, Conjunctiva: normal, no exudate, no injection, Sclera: no appreciated abnormality, Lids and lashes: appear normal, bilaterally, 20:40 ENT: External ear(s): are unremarkable, Nose: is normal, Mouth: Lips: moist, Oral mucosa: pink and intact, moist, Posterior pharynx: is normal, airway is patent, no erythema, no exudate, 20:40 Neck: ROM/movement: is normal, is supple, without pain, no range of motions limitations, 20:40 Chest/axilla: Inspection: normal, 20:40 Cardiovascular: Rate: normal, Rhythm: regular, 20:40 Respiratory: the patient does not display signs of respiratory distress, Respirations: normal, no use of accessory muscles, no retractions, labored breathing, is not present, Breath sounds: are clear throughout, no decreased breath sounds, no stridor, no wheezing, 20:40 Abdomen/GI: Inspection: obese Bowel sounds: active, all quadrants, Palpation: soft, in all quadrants, moderate abdominal tenderness, in the posterior aspect of left lateral abdomen and anterior aspect of left lateral abdomen, rebound tenderness, is not appreciated, involuntary guarding, is not appreciated, 20:40 Back: CVA tenderness, is absent, 20:40 Skin: cellulitis, is not appreciated, no rash present. 20:40 Neuro: Orientation: is normal, Mentation: is normal, Motor: moves all fours, strength is normal, Gait: is steady, 22:30 ECG was reviewed by the Attending Physician. cp Vital Signs: 20:11 BP 177 / 107; Pulse 79; Resp 16; Temp 98; Pulse Ox 100% on R/A; Weight 102.51 kg; iw Height 4 ft. 10 in. ; Pain 7/10; 21:05 BP 158 / 112; Pulse 70; Resp 20; Pulse Ox 100% on R/A; Pain 8/10; km8 21:30 BP 163 / 100; Pulse 72; Resp 20; Pulse Ox 100% on R/A; km8 22:30 BP 167 / 97; Pulse 67; Resp 20; Pulse Ox 100% on R/A; km8 23:00 BP 142 / 88; Pulse 68; Resp 16 S; Pulse Ox 97% on R/A; [facility] 23:30 BP 129 / 76; Pulse 66; Resp 16 S; Pulse Ox 98% on R/A; km8 20:11 Body Mass Index 47.23 (102.51 kg, 147.32 cm) iw 20:11 Pain Scale: Adult iw 21:05 Pain Scale: Adult km8 MDM: 20:21 Patient medically screened. 21:00 Differential diagnosis: nephrolithiasis, pyelonephritis, UTI, diverticulitis, cp pancreatitis, ruptured AAA, dissecting AAA. 23:53 Data reviewed: vital signs, nurses notes, lab test result(s), radiologic studies, CT cp scan. 23:53 I considered the following discharge prescriptions or medication management in the emergency department Medications were administered in the Emergency Department. See MAR. Care significantly affected by the following chronic conditions: Diabetes, Hypertension. Counseling: I had a detailed discussion with the patient and/or guardian regarding the historical points, exam findings, and any diagnostic results supporting the discharge/admit diagnosis, lab results, radiology results, the need for outpatient follow up, a family practitioner, to return to the emergency department if symptoms worsen or persist or if there are any questions or concerns that arise at home. Response to treatment: the patient's symptoms have markedly improved after treatment, and as a result, I will discharge patient. 03/28 20:22 Order name: CBC with Diff; Complete Time: 21:43 cp 03/28 21:43 Interpretation: Normal except: HGB 11.8; HCT 34.9; EOSINOPHIL % 6.0. 03/28 20:22 Order name: CMP; Complete Time: 21:43 cp 03/28 21:44 Interpretation: Normal except: GLUC 129; AST 87; ALT 104; ALK 273; ALB 3.1; GLOB 4.7; cp A/G 0.7. 03/28 20:22 Order name: Lipase; Complete Time: 21:43 cp 03/28 20:22 Order name: Test, Urine; Complete Time: 21:43 cp 03/28 20:22 Order name: Urinalysis w/ reflexes; Complete Time: 21:43 cp 03/28 21:44 Interpretation: Normal except: UBLD 3+. 03/28 22:22 Order name: Troponin High Sensitivity; Complete Time: 23:26 cp 03/28 23:26 Interpretation: Reviewed. cp 03/28 20:56 Order name: CT Stone Protocol; Complete Time: 22:16 cp 03/28 22:22 Order name: EKG; Complete Time: : cp 03/28 20:22 Order name: IV Saline Lock; Complete Time: 21: cp 03/28 20:22 Order name: Labs collected and sent; Complete Time: 21: cp 03/28 22:22 Order name: EKG - Nurse/Tech; Complete Time: : cp EC:30 Rate is 68 beats/min. Rhythm is regular. OH interval is normal. QRS interval is normal. cp QT interval is normal. T waves are Inverted in lead aVR. Interpreted by me. Reviewed by me. Administered Medications: 21:21 Drug: NS 0.9% IV 1000 ml IV at 1 bolus Per protocol; 1000 mL bolus Route: IV; Rate: 1 km8 bolus; Site: left antecubital; 23:30 Follow up: IV Status: Completed infusion; IV Intake: 1000ml 8 21:21 Drug: Ondansetron IVP 4 mg IVP once; over 2 minutes Route: IVP; Site: left antecubital; km8 22:18 Follow up: Response: No adverse reaction km8 21:21 Drug: morphine IVP or IV 4 mg IVP once over 4 mins Route: IVP; Infused Over: 4 mins; km8 Site: left antecubital; 22:18 Follow up: Response: No change in condition km8 22:34 Drug: Aspirin PO Chewable Tablet 324 mg PO once; 81 mg tablets x 4 Route: PO; km8 22:52 Follow up: Response: No adverse reaction; Pain is decreased km8 22:35 Drug: Ketorolac IVP 15 mg IVP once Route: IVP; Site: right antecubital; km8 22:52 Follow up: Response: No adverse reaction; Pain is decreased km8 Disposition: 03/29 02:19 Co-signature as Attending Physician, Hema Licona MD I reviewed the patient's care rt provided by the Advanced Practice Provider and agree with the diagnosis and treatment plan. Disposition Summary: 03/28/23 23:54 Discharge Ordered Notes: Location: Home cp Problem: new cp Symptoms: have improved cp Condition: Stable cp Diagnosis - Hematuria, unspecified cp - Abdominal pain, unspecified cp - Chest pain, unspecified cp Followup: cp - With: Private Physician - When: 2 - 3 days - Reason: Recheck today's complaints Discharge Instructions: - Discharge Summary Sheet cp - Abdominal Pain, Adult cp - Nonspecific Chest Pain, Adult cp - Hematuria, Adult cp Forms: - Medication Reconciliation Form cp - Thank You Letter cp - Antibiotic Education cp - Prescription Opioid Use cp - Patient Portal Instructions cp - Leadership Thank You Letter cp Prescriptions: - Cyclobenzaprine 10 mg Oral Tablet - take 1 tablet ORAL route every 8 hours As needed; 30 tablet; Refills: 0, cp Product Selection Permitted - Diclofenac Sodium 75 mg Oral Tablet Sustained Release - take 1 tablet ORAL route 2 times per day; 30 tablet; Refills: 0, Product cp Selection Permitted Signatures: Dispatcher [employer] EDMillicent Pulliam RN RN iw Odell Mejía, LAUREN PA cp Hema Licona MD MD rt Brandy Kim RN RN km8 Corrections: (The following items were deleted from the chart) 03/28 21:44 21:43 Normal except: GLUC 129. cp cp
[2023-03-29 00:40] VITALS: TEMP 98
[2023-03-29 00:51] VITALS: BP 129/76; O2SAT 98
--- NOTE | 2023-03-31 07:56 | EKG ---
Test Date: 2023-03-28 Test Time: 22:24:50 [facility] Supervisor: SAGRARIO MEASUREMENT RESULTS: Intervals: Rate: 68 MT: 160 QRSD: 80 QT: 408 QTc: 433 [place]: P: 41 MT: 160 QRS: 56 T: 33 INTERPRETIVE STATEMENTS: Normal sinus rhythm Normal ECG Compared to ECG 05/20/2015 00:33:24 No significant changes Electronically Signed On 03-31-23 07:52:15 CDT by Palomo Gonzales
== END 2023-03-29 00:10 | disposition home or self-care (01) ==
LOC: ER 19:42
DX: R31.9 Hematuria, unspecified (principal); R10.32 Left lower quadrant pain; R07.9 Chest pain, unspecified; E11.9 Type 2 diabetes mellitus without complications; I10 Essential (primary) hypertension; Z87.442 Personal history of urinary calculi; Z88.2 Allergy status to sulfonamides
CPT/HCPCS: 93005; 85025; 81001; 36415; 81025; 84484; 83690; 80053; 76377; 74176; 99285; J2405; J7030